=== PATIENT | male | born 1935 | race Caucasian/White ===

== ENCOUNTER 2018-04-26 21:01 | Emergency (ER) | payer MEDICARE, OTHER ==
[~2018-04-26] VITALS: Ht 152.4 cm; Wt 85.0 kg
[2018-04-26 21:08] VITALS: BP 175/94
[2018-04-26] MEDS ORDERED: LIDOCAINE-MPF 1%, 5ML ONE (21:28)
[2018-04-26] MEDS ORDERED: LIDOCAINE 1%, 10ML INFIL ONE (21:30)
== END 2018-04-26 22:23 | disposition home or self-care (01) ==
LOC: ED 21:58
DX: S51.811A Laceration without foreign body of right forearm, initial encounter (principal); I10 Essential (primary) hypertension; W01.0XXA Fall on same level from slipping, tripping and stumbling without subsequent striking against object, initial encounter; Y93.79 Activity, other specified sports and athletics; Y92.328 Other athletic field as the place of occurrence of the external cause; Y99.8 Other external cause status
CPT/HCPCS: 12032; 99284